=== PATIENT | male | born 1995 | race Caucasian/White ===

== ENCOUNTER 2021-12-09 23:03 | Emergency (ER) | payer BC ==
--- NOTE | 2021-12-10 01:29 | ED Physician Documentation ---
History of Present Illness - Stated complaint Stated Complaint: FEVER,SORE THROAT,ACHES - Chief complaint Chief Complaint: General - History obtained from History obtained from: Patient - History of Present Illness Timing: How many days ago (2-3) Improved by: no ameliorating factors Worsened by: no exacerbating factors - Additonal information Additional information: c/o 2-3 days of nonproductive cough, fatigue, generalized myalgias, sore throat, subjective fever (did not take temperature at home). Patient is COVID vaccinated. Review of Systems Constitutional: reports: Fever (sujbective (patient says he feels like he has been having fevers 2-3 days but did not take temperature at home)) Ears: denies: Ear pain Nose: reports: Reviewed and negative Throat: reports: Sore throat Cardiac: reports: Reviewed and negative Respiratory: reports: Cough. denies: Dyspnea GI: reports: Reviewed and negative PD PAST MEDICAL HISTORY - Past Medical History Past Medical History: Yes Cardiovascular: Murmur Respiratory: None Neuro: None Endocrine/Autoimmune: None GI: None : None HEENT: None Psych: None Musculoskeletal: None Derm: None - Past Surgical History Past Surgical History: Yes Ortho: Arthroscopic surgery, Other - Allergies Allergies/Adverse Reactions: Allergies Allergy/AdvReac Type Severity Reaction Status Date / Time codeine Allergy Hives Verified 12/09/21 23:19 - Social History Does the pt smoke?: No Smoking Status: Never smoker Does the pt drink ETOH?: Yes Does the pt have substance abuse?: No - Immunizations Immunizations are current?: Yes - POLST Patient has POLST: No PD ED PE NORMAL - Vitals Vital signs reviewed: Yes - General General: Alert and oriented X 3, No acute distress, Well developed/nourished - HEENT HEENT: Pharynx benign - Cardiac Cardiac: RRR, No murmur - Respiratory Respiratory: No respiratory distress, Clear bilaterally - Abdomen Abdomen: Soft, Non tender Results - Vitals Vitals: Oxygen O2 Source Room air PD MEDICAL DECISION MAKING - ED course Complexity details: considered differential, d/w patient ED course: NAD and unremarkable exam including clear lungs to auscultation and normal posterior o/p. Testing options d/w patient and shared decision to not perform tests at this time. patient says his sore throat has been improving and no exudate or erythema make strep unlikely. Respiratory PCR not performed as results would not change number operator. Departure - Departure Disposition: 01 Home, Self Care Clinical Impression: Viral syndrome Condition: Good Instructions: ED Viral Syndrome Comments: The description of symptoms (sore throat, fevers, cough, body aches) is suggestive of a viral infection. As we discussed, no tests were performed tonight because the viral tests I can undertake will not change number operator at this time (for example, if you test positive for influenza or COVID, you would not benefit from anti-viral medications). You should expect the symptoms to improve and eventually resolve within the next 3-5 days. If you feel worse to the point of needing reevaluation, please return to the emergency department. Discharge Date/Time: 12/10/21 02:10
[2021-12-10 02:00] VITALS: BP 123/71
== END 2021-12-10 02:10 | disposition home or self-care (01) ==
LOC: ED 23:03
DX: B34.9 Viral infection, unspecified (principal)
CPT/HCPCS: 99281; 99282